=== PATIENT | female | born 1950 | race Caucasian/White ===

== ENCOUNTER 2019-01-27 11:53 | Emergency (ER) | payer OTHER ==
[~2019-01-27] VITALS: Ht 167.6 cm; Wt 120.0 kg
[~2019-01-27 11:53] MED LIST: HYDR-4011 PO; IBUP-1542 PO
[2019-01-27 12:02] VITALS: Ht 167.6 cm; Wt 120.0 kg
[2019-01-27] MEDS ORDERED: ONDANSETRON (ODT) 4 MG TAB ODT STA (13:54)
[2019-01-27] MEDS ORDERED: HYDROCODONE/APAP (5/325) TAB PO ONE (14:00)
[2019-01-27] MEDS ORDERED: NAPR-985 PO (15:50)
[2019-01-27] MEDS ORDERED: HYDR-4011 PO (15:50)
--- NOTE | 2019-01-27 15:55 | ERD ---
ER Documentation Chief Complaint Chief Complaint Complains of right knee pain after a fall today HPI 68-year-old female presenting with pain to right knee and left foot. Patient also some mild pain to the left hand. Patient tripped and fell with no head injury or loss of consciousness. Has not taken any medication for pain. Patient is history of diabetes hypertension. NKDA. Surgical history denies. Social history denies ROS All systems reviewed and are negative except as per history of present illness. Medications Home Meds Active Scripts Naproxen* (Naprosyn*) 500 Mg Tablet, 500 MG PO BID PRN for PAIN AND/OR INFLAMMATION, #30 TAB Prov:MERLIN ALBERT PA-C 01/27/19 Hydrocodone/Acetaminophen (Coalgood 5-325 Tablet) 1 Each Tablet, 1 TAB PO Q6H PRN for PAIN, #7 TAB Prov:MERLIN ALBERT PA-C 01/27/19 Hydrocodone/Acetaminophen (Co[place]good 5-325 Tablet) 1 Each Tablet, 1 TAB PO Q6H PRN for SEVERE PAIN LEVEL 7-10, #20 TAB Prov:RAF PINEDA NP 11/19/16 Ibuprofen* (Motrin*) 600 Mg Tab, 600 MG PO Q6H PRN for PAIN AND OR ELEVATED TEMP, #30 TAB Prov:RAF PINEDA NP 11/19/16 Reported Medications [none] Unknown Strength No Conflict Check 11/19/16 Allergies Allergies: Coded Allergies: No Known Allergy (Unverified , 11/19/16) PMhx/Soc Hx Alcohol Use: No Hx Substance Use: No Hx Tobacco Use: No Smoking Status: Never smoker FmHx Family History: No diabetes, No coronary disease, No other Physical Exam Vitals Vital Signs Date Temp Pulse Resp B/P (MAP) Pulse Ox O2 O2 Flow FiO2 Time Delivery Rate 01/27/19 99.3 82 20 165/82 99 Room Air 15:58 (109) 01/27/19 99.3 94 20 179/84 99 12:02 (115) Physical Exam GENERAL: The patient is well-appearing, well-nourished, in no acute distress CHEST: Clear to auscultation bilaterally. There are no rales, wheezes or rhonchi. HEART: Regular rate and rhythm. No murmurs, clicks, rubs or gallops. EXTREMITIES: Normal flexion and extension of the right knee. No valgus or varus deformity. No tenderness palpation of the base of the left great toe. No snuffbox tenderness noted of the left hand. NEUROLOGIC: Alert and oriented. Cranial nerves II through XII intact. Motor strength in all 4 extremities with 5 out of 5 strength. Sensation grossly intact. Normal speech and gait. SKIN: Contusion noted to right knee. No laceration or abrasion. Results 24 hrs Current Medications Medications Dose Sig/Alyssa Start Time Status Last (Trade) Ordered Route PRN Stop Time Admin Dose Reason Admin 1 tab ONCE ONCE 01/27/19 DC 01/27/19 Acetaminophen PO 14:00 14:03 / 01/27/19 14:01 Hydrocodone Bitart (Co[place]good (5/325)) Ondansetron 4 mg ONCE STAT 01/27/19 DC 01/27/19 HCl (Zofran ODT 13:54 14:03 Odt) 01/27/19 13:55 Procedures/MDM DIAGNOSTIC IMAGING REPORT Patient: PEDRO GAINES : 1950 Age: 68 Sex: F MR #: [id number] DOS: 01/27/19 1352 Ordering MD: PABLO ALBERT PA-C Location: [facility] Room/Bed: PROCEDURE: XR Foot. CLINICAL INDICATION: fall TECHNIQUE: AP, lateral and oblique views of the left foot was obtained. The images were reviewed on a PACS workstation. COMPARISON: None. FINDINGS: Bones are mildly osteopenic. There are subtle curvilinear lucencies in the medial corner of the base of proximal phalanx first ray, also indicated as the most symptomatic region by the technologist. The patient demonstrates multiple chronic fractures with callous formation and metatarsus varus angulation and associated high density ballistic fragments, involving the proximal first, second, third and fourth metatarsals. There is also dorsal spurring of the fracture deformity. More proximally, there is spurring of the talonavicular joint and naviculocuneiform joints. Grossly unremarkable appearance of the overlying soft tissues. IMPRESSION: Subtle curvilinear lucencies in the base of the first proximal phalanx, medial corner, suspicious for nondisplaced fracture. Further cross-sectional imaging MR or CT can be obtained to confirm or disprove the radiographic findings. Multiple chronic fractures with callus formation and metatarsus varus angulation, associated with ballistic fragments involving the first to fourth metatarsals. Associated dorsal spurring, as well more proximal dorsal spurring of the talonavicular and naviculocuneiform joints. DIAGNOSTIC IMAGING REPORT Patient: PEDRO GAINES : 1950 Age: 68 Sex: F MR #: [id number] DOS: 01/27/19 1352 Ordering MD: PABLO ALBERT PA-C Location: [facility] Room/Bed: PROCEDURE: XR Knee. CLINICAL INDICATION: knee pain TECHNIQUE: Three views of the right knee are available for review. COMPARISON: None available FINDINGS: Bony mineralization within normal limits. No evidence of acute displaced fracture or osseous aggressive lesion. Mild narrowing of the medial compartment. Sharpening of the tibial spines. No joint effusion. Narrowing of the patellofemoral joint space with spurring of the superior pole patella. No radiopaque or metallic foreign body identified. Marked prepatellar soft tissue thickening. IMPRESSION: No acute or aggressive osseous changes identified in the right knee joint on radiograph. Marked prepatellar soft tissue thickening, which can be correlated for prepatellar hemorrhagic bursitis. DJD with joint space narrowing most prominent in the medial and patellofemoral compartments with spurring. DIAGNOSTIC IMAGING REPORT Patient: PEDRO GAINES : 1950 Age: 68 Sex: F MR #: [id number] DOS: 01/27/19 1352 Ordering MD: PABLO ALBERT PA-C Location: [facility] Room/Bed: PROCEDURE: XR Wrist. CLINICAL INDICATION: Fall TECHNIQUE: AP, lateral and oblique views of the left wrist were performed. Additional navicular view also obtained. COMPARISON: No prior studies are available for comparison. FINDINGS: Mild osteopenia. The joint spaces are well preserved. No evidence of fracture, dislocation, or subluxation is seen. Attention was also made to the scaphoid including the navicular view. There is mild positive ulnar variance. The soft tissues appear unremarkable. There is no radiopaque foreign body. IMPRESSION: 1. No evidence of acute displaced fracture or malalignment, including attention to the scaphoid. 2. Mild osteopenia. 3. Mild positive ulnar variance. ER course: Orthostatic given to left foot. Patient had a knee immobilizer applied in ED. Patient was given crutches. Patient is neuro intact pre-and post splint application. MDM: 68-year-old female presenting with knee pain and left foot pain. I have low suspicion for tendon or ligament rupture. Patient likely has a nondisplaced fracture noted of the left great toe and will be treated appropriately. Patient is recommended follow-up with orthopedist. I will suspicion for neuro deficit. Patient is discharged stricter precautions and told to follow-up with primary care within 1-2 days for close evaluation. Patient is told symptoms change or worsen to return immediately to the ER. All questions answered at this Departure Diagnosis: Primary Impression: Foot injury Additional Impression: Knee injury Condition: Stable Patient Instructions: Contusion, Lower Extremity, Fracture, Toe [Closed] Referrals: [facility] YOU HAVE RECEIVED A MEDICAL SCREENING EXAM AND THE RESULTS INDICATE THAT YOU DO NOT HAVE A CONDITION THAT REQUIRES URGENT TREATMENT IN THE EMERGENCY DEPARTMENT. FURTHER EVALUATION AND TREATMENT OF YOUR CONDITION CAN WAIT UNTIL YOU ARE SEEN IN YOUR DOCTORS OFFICE WITHIN THE NEXT 1-2 DAYS. IT IS YOUR RESPONSIBILITY TO MAKE AN APPOINTMENT FOR FOLOW-UP CARE. IF YOU HAVE A PRIMARY DOCTOR --you should call your primary doctor and schedule an appointment IF YOU DO NOT HAVE A PRIMARY DOCTOR YOU CAN CALL OUR PHYSICIAN REFERRAL HOTLINE AT IF YOU CAN NOT AFFORD TO SEE A PHYSICIAN YOU CAN CHOSE FROM THE FOLLOWING [facility] CLINICS [facility] [id number] [facility]. [facility] [address] [facility] [facility] [address] [facility] [address] [facility] [address] [facility]. [facility]. [address] Hours: Mon-Fri 9:00 AM - 5:00 PM Additional Instructions: FOLLOW UP WITH YOUR PRIMARY CARE PHYSICIAN TOMORROW.Return to this facility if you are not improving as expected. MERLIN ALBERT PA-C Jan 27, 2019 15:55
[2019-01-27 15:58] VITALS: BP 165/82; PULSE 82; RESP 20
== END 2019-01-27 17:12 | disposition home or self-care (01) ==
LOC: FTE 11:53
DX: S99.921A Unspecified injury of right foot, initial encounter (principal); W19.XXXA Unspecified fall, initial encounter; Y92.9 Unspecified place or not applicable
CPT/HCPCS: 29505; 73110; 73562; 73630; 99283; L3260